=== PATIENT | female | born 1940 | race Caucasian/White ===

== ENCOUNTER → 2016-09-12 | Outpatient (CLI) | payer MEDICARE ==
[~2016-09-12] MED LIST: NORCO 325 MG-51 TAB PO
== END ==
LOC: MC.RAD 13:45
DX: Z12.31 Encounter for screening mammogram for malignant neoplasm of breast (principal); N63 Unspecified lump in breast

== ENCOUNTER → 2016-09-17 | Outpatient (CLI) | payer MEDICARE | LOC: MC.RAD 09:00 | DX: R92.8 Other abnormal and inconclusive findings on diagnostic imaging of breast (principal) ==

== ENCOUNTER 2022-01-23 11:47 | Inpatient (IN) | payer MEDICARE ==
[~2022-01-23] VITALS: Ht 167 cm; Wt 79.5 kg
[2022-01-23 12:15] LABS: BASO % 0.2 % (0.0-2.0); GRAN # 3.2 K/mm3 (1.4-6.5); GRAN % 74.8 % (42.2-75.2); HEMATOCRIT 38.4 % (37.0-47.0); HEMOGLOBIN 13.1 g/dl (12.5-16.0); LYMPH # 0.8 K/mm3 (1.2-3.4); MEAN CELL VOLUME 91 fl (80.0-100.0); MEAN CORPUSCULAR HEMOGLOBIN 31 pg (27-31); MEAN CORPUSCULAR HGB CONC 34 g/dl (33.0-37.0); MONO # 0.2 K/mm3 (0.1-0.6); MONO % 3.8 % (1.7-9.3); PLATELET COUNT 100 K/mm3 (130-400); RED BLOOD COUNT 4.24 M/mm3 (4.10-5.30); REDCELL DISTRIBUTION WIDTH-CV 12.6 % (11.5-14.5)
[2022-01-23 12:40] LABS: ALANINE AMINOTRANSFERASE < 6 U/L (0-55); ALBUMIN 3.8 gm/dL (3.4-4.8); ALKALINE PHOSPHATASE 64 U/L (40-150); ANION GAP 14 mmol/L (7-16); AST,SGOT 19 U/L (5-34); BILIRUBIN,TOTAL 1.8 mg/dL (0.2-1.2); BLOOD UREA NITROGEN 24 mg/dL (10-20); CALCIUM 9.4 mg/dL (8.4-10.2); CARBON DIOXIDE 24 mmol/L (23-31); CHLORIDE 96 mmol/L (98-107); CREATININE, serum 1.76 mg/dL (0.57-1.11); GLUCOSE 128 mg/dL (70-99); POTASSIUM 3.8 mmol/L (3.5-4.5); SODIUM 134 mmol/L (136-145)
[2022-01-23 12:45] LABS: TROPONIN-I 0.021 ng/mL (0.00-0.033)
[2022-01-23 14:03] LABS: MUCOUS Present (NOT PRESENT); PH 5 (5-8); SQUAMOUS EPITHELIAL 0-2 /hpf (0-10); URINE APPEARANCE Clear (CLEAR/HAZY); URINE BACTERIA Many /hpf (NONE SEEN); URINE BILIRUBIN Negative (NEGATIVE); URINE BLOOD Negative (NEGATIVE); URINE COLOR Yellow (YELLOW); URINE GLUCOSE Negative (NEGATIVE); URINE KETONE Trace (NEGATIVE); URINE LEUKOCYTE ESTERASE Negative (NEGATIVE); URINE NITRATE Negative (NEGATIVE); URINE PROTEIN(semi-quant) Negative (NEGATIVE); URINE RBC 0-2 /hpf (0-2); URINE UROBILINOGEN Negative (NEGATIVE)
[2022-01-23 14:06] LABS: COLLECTION METHOD CATHETER
[2022-01-23] MEDS ORDERED: NUPLAZID34 MG PO (14:12)
[2022-01-23] MEDS ORDERED: SINEMET CR1 UDTAB.S1 PO (14:12)
[2022-01-23] MEDS ORDERED: RAZADYNE12 MG PO (14:12)
[2022-01-23] MEDS ORDERED: SYNTHROID 0.0.025 MG PO (14:13)
[2022-01-23] MEDS ORDERED: HCTZ 25MG TAB25 MG PO (14:13)
[2022-01-23] MEDS ORDERED: FOSAMAX 70MG TA70 MG PO (14:13)
[2022-01-23] MEDS ORDERED: LOPRESSOR 225 MG/TAB PO (14:13)
[2022-01-23] MEDS ORDERED: PEPCID 20MG TAB20 MG PO (14:13)
[2022-01-23] MEDS ORDERED: MIRAPEX 1MG PO (15:45)
[2022-01-23] MEDS ORDERED: NAMENDA 10MG TA10 MG PO (15:46)
[2022-01-23] MEDS ORDERED: MIRAPEX0.25 MG PO (15:46)
[2022-01-23] MEDS ORDERED: K-TAB10 PO (15:47)
[2022-01-23 16:33] VITALS: BP 131/55; PULSE 64; TEMP 98.6
[2022-01-23 19:24] VITALS: BP 117/40; PULSE 63; TEMP 98
--- NOTE | 2022-01-23 20:27 | NUR ---
ASSESSMENT COMPLETE. PT. SLEEPING IN BED. A&O. PT. IS DEAF AND COMMUNICATES THROUGH READING LIPS AND WRITING. NO COMPLAINTS OF PAIN. FAMILY AT BEDSIDE. PT. INSTRUCTED IN HOW TO USE CALL LIGHT. WILL MONITOR CLOSELY. NO FURTHER NEEDS AT THIS TIME.
[2022-01-24] VITALS: BP 112/45; PULSE 69; TEMP 97.8
[2022-01-24 04:12] VITALS: BP 107/51; PULSE 67; TEMP 97.9
--- NOTE | 2022-01-24 05:52 | NUR ---
PT. SPENT THE NIGHT SLEEPING QUITLY. NO NEEDS THROUGHOUT THE NIGHT. PT. IS AWAKE AND LYING IN BED. CALL LIGHT IN REACH.
--- NOTE | 2022-01-24 06:51 | NUR ---
THIS NURSE CALLED LAB DURING YESTERDAY SHIFT 01/23/22 REGARDING URINE CULTURE ORDERED. REQUESTED LAB RUN URINE CULTURE FROM CATH SPECIMEN ALREADY IN LAB FROM ED DEPT. LAB STATED URINE REFLEX CULTURE RUNNING ALREADY.
[2022-01-24 06:57] LABS: BASO % 0.3 % (0.0-2.0); EOS # 0.1 K/mm3 (0.0-0.7); EOS % 2.4 % (0.0-4.0); GRAN # 1.7 K/mm3 (1.4-6.5); GRAN % 44.3 % (42.2-75.2); HEMOGLOBIN 11.5 g/dl (12.5-16.0); LYMPH # 1.8 K/mm3 (1.2-3.4); LYMPH % 46.8 % (20.0-51.0); MEAN CELL VOLUME 93 fl (80.0-100.0); MEAN CORPUSCULAR HEMOGLOBIN 31 pg (27-31); MEAN CORPUSCULAR HGB CONC 33 g/dl (33.0-37.0); MEAN PLATELET VOLUME 12.9 fl (7.4-10.4); MONO # 0.2 K/mm3 (0.1-0.6); MONO % 5.9 % (1.7-9.3); PLATELET COUNT 77 K/mm3 (130-400); RED BLOOD COUNT 3.74 M/mm3 (4.10-5.30); REDCELL DISTRIBUTION WIDTH-CV 12.8 % (11.5-14.5)
[2022-01-24 07:02] LABS: HEMATOCRIT 34.9 % (37.0-47.0)
[2022-01-24 07:15] LABS: ALKALINE PHOSPHATASE 49 U/L (40-150); ANION GAP 11 mmol/L (7-16); AST,SGOT 14 U/L (5-34); BILIRUBIN,TOTAL 1.1 mg/dL (0.2-1.2); BLOOD UREA NITROGEN 18 mg/dL (10-20); CARBON DIOXIDE 22 mmol/L (23-31); CHLORIDE 101 mmol/L (98-107); CREATININE, serum 1.12 mg/dL (0.57-1.11); GLUCOSE 83 mg/dL (70-99); POTASSIUM 3.5 mmol/L (3.5-4.5); SODIUM 134 mmol/L (136-145); TOTAL PROTEIN 5.4 gm/dL (6.2-8.1)
[2022-01-24 07:16] LABS: ALANINE AMINOTRANSFERASE < 6 U/L (0-55)
[2022-01-24 07:21] VITALS: BP 120/55; PULSE 57; TEMP 97.5
[2022-01-24 07:35] LABS: TSH w REFLEX 1.893 uIU/mL (0.350-4.940)
--- NOTE | 2022-01-24 08:45 | NUR ---
CALL RECIEVED FROM LOCAL DELIVERY DRIVER STATING THAT SHE COULD NOT PERFORM EEG ON PATIENT TODAY DUE TO FULL OUT PATIENT SCHEDULE BEING FULL. REPORTED THIS TO DR STEEN WHO WAS NOT AGREEABLE TO THIS. CHARGE NURSE NOTIFIED WELL. THIS IS THE THIRD PATIENT IN A WEEKS TIME THAT THIS HAS OCCURRED WITH.
--- NOTE | 2022-01-24 09:18 | NUR ---
Initial visit; Patient has trouble hearing, her daughter is with her helping her and asked her whether she would like prayer this morning. Barb did want prayer and thanked Glue Drier Operator for praying with her and offering God's blessings. Glue Drier Operator will keep Barb in her prayers.
--- NOTE | 2022-01-24 11:02 | NUR ---
RT PERSONALLY CALLED DR. STEEN AND LEFT MESSAGE THAT EEG WILL NOT BE ABLE TO GET DONE TODAY. IF SHE NEEDS TO BE DISCHARGED OVER WEEKEND EEG CAN BE SCHEDULED OUTPATIENT. IF I HAVE A CANCELATION TODAY I WILL BE ABLE TO GET HER EEG DONE. IF PATIENT STAYS TILL THURSDAY I WILL BE ABLE TO GET HER EEG DONE FIRST THING AT 630AM.
[2022-01-24 11:36] VITALS: BP 99/43; PULSE 56; TEMP 98.4
--- NOTE | 2022-01-24 13:48 | NUR ---
Hog Dropper met with patient, patient's daughter Tonie (ph#[phone]), and patient's son Darnell (ph#[phone]) to discuss discharge planning. Patient is deaf and utilizes writing or reading lips for communication. SW inquired about any use of sign language and offered electric frying pan repairer services. Patient does not know sign language and her daughter advised patient began losting her hearing as a young adult. Patient's children did assist greatly during intake with answering questions. Patient lives alone in [place] and her children check in on her multiple times a day. Patient sees Dr. Huang for primary care and her children hot die picker her medications from [facility] on [address]. Patient has a cane at home and no other DME. Patient's son reports she is stubborn and hesitant to use any DME, but they are working on getting her a rollator at this time. Patient's children report that patient bathes herself and is independent with ADLS including baking and cooking. Patient does not drive anymore. Patient's children are beginning the process of looking into Assisted Living Facilities for patient and are interested in [facility]. Darnell advised they are working out the financial piece of this and were open to SW faxing clinical information to [facility]. LOLY contacted [facility] and faxed referral information. Patient's children advised plan will be to return home at time of discharge and continue working on AL placement. LOLY discussed Home Health services with patient and family, then provided Medicare.gov list of agencies that serve [place]. LOLY contacted Terrie Hog Dropper at patient's PCP office and gave the above update. Terrie advised she spoke with the son a year ago and at that time they were working on Medicaid with the goal of moving patient into [place]. Discharge Plan: Home with Home Health, eventually transition to Assisted Living
[2022-01-24 16:04] VITALS: BP 119/60; PULSE 62; TEMP 97.4
[2022-01-24 20:20] VITALS: BP 130/55; PULSE 64; TEMP 98.7
--- NOTE | 2022-01-24 20:20 | NUR ---
ASSESSMENT COMPLETE. PT. SITTING UP IN BED EATING SHERBERT. A&O. NO COMPLAINTS OF PAIN. IV INFUSING INTO LEFT AC. DAUGHTER AT BEDSIDE. NO FURTHER NEEDS AT THIS TIME. WILL CONTINUE TO MONITOR.
[2022-01-25 00:06] VITALS: BP 104/74; PULSE 86; TEMP 100.7
[2022-01-25 00:11] VITALS: BP 139/85; PULSE 69; TEMP 98.2
[2022-01-25 04:23] VITALS: BP 131/58; PULSE 105; PULSE 66; TEMP 97.3
--- NOTE | 2022-01-25 05:14 | NUR ---
PT. SLEPT THROUGHOUT THE NIGHT. NO NEEDS.
--- NOTE | 2022-01-25 08:00 | NUR ---
Patient laying in bed, A&Ox3. NEZ PERCE. VSS IV CDI, dayana wrap covering. Denies pain and discomfort. Call light within reach. Bed alarm on
[2022-01-25 08:04] VITALS: BP 117/54; PULSE 64; TEMP 97.6
[2022-01-25] MEDS ORDERED: KEPPRA250 MG PO (09:25)
--- NOTE | 2022-01-25 11:00 | NUR ---
Discharge paperwork reviewed with the patients son. Son verbalized an understanding to follow doctors orders. IV removed, tip intact, gauze and tape applied. Son assisted with getting the patient dressed. No further needs expressed.
== END 2022-01-25 11:00 | disposition home or self-care (01) | DRG 71 ==
LOC: COL.ER 11:47 → SURG 14:25
PROVIDERS: Physician Assistant; ADMIT Internal Medicine
DX: G93.41 Metabolic encephalopathy (principal); N17.9 Acute kidney failure, unspecified; G20 Parkinson's disease; F02.80 Dementia in other diseases classified elsewhere, unspecified severity, without behavioral disturbance, psychotic disturbance, mood disturbance, and anxiety; H91.90 Unspecified hearing loss, unspecified ear; E86.0 Dehydration; R13.10 Dysphagia, unspecified; D69.6 Thrombocytopenia, unspecified; I10 Essential (primary) hypertension; K21.9 Gastro-esophageal reflux disease without esophagitis; E03.9 Hypothyroidism, unspecified; G25.81 Restless legs syndrome; R56.9 Unspecified convulsions; Z87.891 Personal history of nicotine dependence
CPT/HCPCS: 99232-AI; 99239; G0378; J7030